=== PATIENT | male | born 1990 | race Native Hawaiian/Other Pacific Islander ===

== ENCOUNTER 2018-05-16 16:44 | Emergency (ER) | payer OTHER ==
[~2018-05-16] VITALS: Ht 188 cm; Wt 77.1 kg
[2018-05-16 19:11] VITALS: BP 115/60; TEMP 98.1
== END 2018-05-16 19:14 | disposition home or self-care (01) ==
LOC: ED 16:44
DX: S02.69XA Fracture of mandible of other specified site, initial encounter for closed fracture (principal); Y09 Assault by unspecified means; Y92.098 Other place in other non-institutional residence as the place of occurrence of the external cause
CPT/HCPCS: 99283; J1885